=== PATIENT | female | born 1995 | race Caucasian/White ===

== ENCOUNTER 2018-09-08 19:03 | Emergency (ER) | payer OTHER ==
[2018-09-08] MEDS ORDERED: traMADol 50 MG Tab PO ONE (19:38)
[2018-09-08] MEDS ORDERED: Ibuprofen 600 MG Tab PO ONE (19:39)
--- NOTE | 2018-09-08 19:43 | EDM.PDOC ---
ED HPI GENERAL MEDICAL PROBLEM - General Chief Complaint: Lower Extremity Injury/Pain Stated Complaint: PT FELL AND HURT RT ANKLE Time Seen by Provider: 09/08/18 19:35 - History of Present Illness INITIAL COMMENTS - FREE TEXT/NARRATIVE: HISTORY AND PHYSICAL: History of present illness: The patient is a 23-year-old female with no stated medical history who presents after rolling her ankle while walking just prior to arrival. She said she did fall to the ground but she did not her head pass out or black out and has no head neck or back pain she has no other extremity complaints other than the right ankle and foot. She has no prior history and she did not take any medications for this prior to coming here. She denies as she says she took a test just a few days ago. She says she is feeling pain at the area and it is not numb or tingly. She has no proximal knee or hip pain on the right side and no other extremity complaints. Review of systems: As per history of present illness and below otherwise all systems reviewed and negative. Past medical history: As per history of present illness and as reviewed below otherwise noncontributory. Surgical history: As per history of present illness and as reviewed below otherwise noncontributory. Social history: No reported history of drug or alcohol abuse. Family history: As per history of present illness and as reviewed below otherwise noncontributory. Physical exam: HEENT: Atraumatic, normocephalic, negative for conjunctival pallor or scleral icterus, mucous membranes moist, throat clear, neck supple, nontender, trachea midline. Lungs: Clear to auscultation, breath sounds equal bilaterally, chest nontender. Heart: S1S2, regular rate and rhythm no overt murmurs Abdomen: Deferred Pelvis: There is no lateral hip tenderness on the right Genitourinary: Deferred. Rectal: Deferred. Extremities: Atraumatic full range of motion of all extremities with the exception of the lateral right foot and ankle. There is no discrete tenderness at palpation of the medial or lateral malleoli of the right ankle and no proximal tib-fib knee or thigh pain but there is soft tissue swelling and tenderness of the dorsal aspect of the foot in the lateral aspect of the foot on the right. There is tenderness with palpation of the right fifth metatarsal. The toes are intact without tenderness and pulses are intact. There is good cap refill., negative for cords or calf pain. Neurovascular unremarkable. Neuro: Awake, alert, oriented. Cranial nerves II through XII unremarkable. Cerebellum unremarkable. Motor and sensory unremarkable throughout. Exam nonfocal. Diagnostics: X-ray right foot and ankle Therapeutics: Tramadol and Motrin ortho boot and crutches Impression: Cuboid fracture right foot Definitive disposition and diagnosis as appropriate pending reevaluation and review of above. Right Ankle Pain Score (Numeric/FACES): 8 - Related Data Allergies Allergy/AdvReac Type Severity Reaction Status Date / Time No Known Allergies Allergy Verified 09/08/18 19:24 Home Meds: Home Meds . [No Known Home Meds] 09/08/18 [History] Past Medical History - Past Health History Medical/Surgical History: Denies Medical/Surgical History - Infectious Disease History Infectious Disease History: Reports: None Social & Family History - Tobacco Use Smoking Status *Q: Never Smoker - Caffeine Use Caffeine Use: Reports: Coffee, Tea - Recreational Drug Use Recreational Drug Use: No Review of Systems - Review of Systems Review Of Systems: ROS reveals no pertinent complaints other than HPI. ED EXAM, GENERAL - Physical Exam Exam: See Below (See dictation) Course - Vital Signs Last Recorded V/S: Last Vital Signs Temp 36.6 C 09/08/18 19:23 Pulse 76 09/08/18 19:23 Resp 20 09/08/18 19:23 BP 112/78 09/08/18 19:23 Pulse Ox 99 09/08/18 19:23 - Orders/Labs/Meds Orders: Active Orders 24 hr Category Date Time Status DME for Discharge [COMM] Stat Oth 09/08/18 20:23 Ordered Meds: Medications Discontinued Medications Generic Name Dose Route Start Last Admin Trade Name Jamaq PRN Reason Stop Dose Admin Ibuprofen 600 mg 09/08/18 19:39 09/08/18 19:57 Motrin PO 09/08/18 19:40 600 mg ONETIME ONE Administration Tramadol HCl 50 mg 09/08/18 19:38 09/08/18 19:59 Ultram PO 09/08/18 19:39 50 mg ONETIME ONE Administration Departure - Departure Time of Disposition: 20:29 Disposition: Home, Self-Care 01 Condition: Good Clinical Impression: Cuboid fracture Qualifiers: Encounter type: initial encounter Fracture type: closed Fracture alignment: nondisplaced Laterality: right Qualified Code(s): S92.214A - Nondisplaced fracture of cuboid bone of right foot, initial encounter for closed fracture - Discharge Information Referrals: PCP,None [Primary Care Provider] - Forms: ED Department Discharge Additional Instructions: The following information is given to patients seen in the emergency department who are being discharged to home. This information is to outline your options for follow-up care. We provide all patients seen in our emergency department with a follow-up referral. The need for follow-up, as well as the timing and circumstances, are variable depending upon the specifics of your emergency department visit. If you don't have a primary care physician on staff, we will provide you with a referral. We always advise you to contact your personal physician following an emergency department visit to inform them of the circumstance of the visit and for follow-up with them and/or the need for any referrals to a consulting specialist. The emergency department will also refer you to a specialist when appropriate. This referral assures that you have the opportunity for followup care with a specialist. All of these measure are taken in an effort to provide you with optimal care, which includes your followup. Under all circumstances we always encourage you to contact your private physician who remains a resource for coordinating your care. When calling for followup care, please make the office aware that this follow-up is from your recent emergency room visit. If for any reason you are refused follow-up, please contact the [facility] emergency department at and ask to speak to the emergency department charge nurse. Dr Areli Vences [address] [place] [id number] [facility] Podiatry [address] [place] [id number] Fax: [phone] Ice and elevate the area as much as possible and use [id number] ibuprofen for pain management and add the tramadol you have been given as needed but only take when you're at home. Do not weight-bear until you're followed up in the clinic and use resources given to above to connect with clinic follow-up by calling Trevor morning. Use crutches to not weight-bear. Return to ER as needed and as discussed - My Orders Last 24 Hours: My Active Orders 09/08/18 20:23 DME for Discharge [COMM] Stat - Assessment/Plan Last 24 Hours: My Active Orders 09/08/18 20:23 DME for Discharge [COMM] Stat
--- NOTE | 2018-09-08 20:07 | CR ---
3 VIEWS portable right foot INDICATION: Injury. IMPRESSION: Anatomic alignment. Lucency involving the anterior lateral cuboid on the AP view superimposition versus nondisplaced fracture. FINDINGS: On the frontal view, a lucency is present through the lateral margin of the cuboid. Correlate with point tenderness in this region to exclude a fracture. Incidental fused previous secondary ossification center of the tarsal navicular. Anatomic alignment are present. Dictated by Charles Kothari MD @ Sep 08 2018 8:03PM Signed by Dr. Charles Kothari @ Sep 08 2018 8:05PM
--- NOTE | 2018-09-08 20:16 | CR ---
3 VIEWS portable right ankle INDICATION: Injury. IMPRESSION: No visualized ankle fracture. See separate dictation for the foot. Alignments anatomic. Joint spaces unremarkable. Dictated by Charles Kothari MD @ Sep 08 2018 8:12PM Signed by Dr. Charles Kothari @ Sep 08 2018 8:13PM
== END 2018-09-08 20:42 | disposition home or self-care (01) ==
LOC: MW.ED 19:03
DX: S92.214A Nondisplaced fracture of cuboid bone of right foot, initial encounter for closed fracture (principal); W19.XXXA Unspecified fall, initial encounter
CPT/HCPCS: 73610; 73630; 99283; A9270